=== PATIENT | female | born 1990 | race Two or more races ===

== ENCOUNTER 2017-09-10 00:29 | Emergency (ER) | payer OTHER ==
[~2017-09-10] VITALS: Ht 154.9 cm; Wt 72.6 kg
[2017-09-10 00:30] VITALS: BP 116/75
== END 2017-09-10 01:04 ==
LOC: ER 00:35
DX: K08.89 Other specified disorders of teeth and supporting structures (principal); K02.9 Dental caries, unspecified; Z60.2 Problems related to living alone
CPT/HCPCS: 99283; A4606; Z7610